=== PATIENT | male | born 1960 | race Two or more races ===

== ENCOUNTER 2018-11-18 05:24 | Inpatient (IN) | payer OTHER ==
[~2018-11-18] VITALS: Ht 177.8 cm; Wt 107.0 kg
[~2018-11-18 05:24] MED LIST: AMLO-150 PO; ASPI-496 PO; CHOL500015 PO; EMPA10TA PO; FENO160T PO; GABA100C PO; KRIL1CAP5 PO; LATA2.5D3 EACHEYE; LISI-170 PO; MELO15TA24 PO; MULT-642 PO; PITA4TAB2 PO; SITA1TAB5 PO; TAMS-11 PO; TIZA4TAB PO
[2018-11-18] MEDS ORDERED: LACTATED RINGERS 1,000 ML IV SCH (06:20)
[2018-11-18 06:23] VITALS: BP 132/82
[2018-11-18] MEDS ORDERED: THROMBIN 5,000 UNIT VIAL TP ONE (06:44)
[2018-11-18] MEDS ORDERED: BUPIVACAINE/PF 0.25% ONE (06:47)
[2018-11-18] MEDS ORDERED: VANCOMYCIN 1,000 MG ONE (06:47)
[2018-11-18] MEDS ORDERED: VANCOMYCIN 500 MG ONE (06:47)
[2018-11-18] MEDS ORDERED: LIDOCAINE/PF 0.5% ,50ML ONE (06:47)
[2018-11-18] MEDS ORDERED: EPINEPHRINE 1 MG/ML, 1ML ONE (06:48)
[2018-11-18] MEDS ORDERED: PROPOFOL 50 ML ONE ×3 (06:49→09:31)
[2018-11-18] MEDS ORDERED: MIDAZOLAM 1 MG/ML, 2ML ONE (06:49)
[2018-11-18] MEDS ORDERED: FENTANYL PF 250 MCG/5ML ONE (06:49)
[2018-11-18] MEDS ORDERED: KETAMINE 50 MG/ML, 10ML ONE (07:22)
[2018-11-18] MEDS ORDERED: METOCLOPRAMIDE 5 MG/ML, 2ML IV PRN (07:30)
[2018-11-18] MEDS ORDERED: FENTANYL PF 100 MCG/2ML IV PRN (07:30)
[2018-11-18] MEDS ORDERED: MEPERIDINE/PF 25MG/0.5ML IVPush PRN (07:30)
[2018-11-18] MEDS ORDERED: METOPROLOL 1 MG/ML, 5ML IV PRN (07:30)
[2018-11-18] MEDS ORDERED: hydrALAzine 20 MG/ML, 1ML IV PRN (07:30)
[2018-11-18] MEDS ORDERED: OXYcodone 5 MG/5 ML ORAL.SOL UDC PO PRN (07:30)
[2018-11-18] MEDS ORDERED: GABAPENTIN 300 MG CAPSULE PO ONE (07:30)
[2018-11-18] MEDS ORDERED: LABETALOL 5MG/ML, 20ML IV PRN (07:30)
[2018-11-18] MEDS ORDERED: ACETAMINOPHEN 500 MG TABLET PO ONE (07:30)
[2018-11-18] MEDS ORDERED: ALBUTEROL SULFATE 2.5 MG/3 ML NPPB PRN (07:30)
[2018-11-18] MEDS ORDERED: LORazepam 2 MG/ML, 1ML IVPush PRN (07:30)
[2018-11-18] MEDS ORDERED: OXYcodone 5 MG/5 ML ORAL.SOL UDC ONE (10:24)
[2018-11-18] MEDS ORDERED: HYDROmorphone 2 MG/ML, 1ML ONE (10:24)
[2018-11-18] MEDS: HYDROmorphone 2 MG/ML, 1ML IVPush PRN ×3 (10:27→10:41)
[2018-11-18] MEDS ORDERED: METHOCARBAMOL 1,000 MG in DEXTROSE 5% 100 ML IV ONE (10:30)
[2018-11-18] MEDS ORDERED: SUCCINYLCHOLINE 20 MG/ML, 10ML ONE (10:58)
[2018-11-18] MEDS ORDERED: CEFAZOLIN 1,000 MG ONE (10:58)
[2018-11-18] MEDS ORDERED: DEXAMETHASONE 4 MG/ML, 1ML ONE (10:58)
[2018-11-18] MEDS ORDERED: PROPOFOL 10 MG/ML, 20ML ONE (10:58)
[2018-11-18] MEDS ORDERED: ONDANSETRON 2MG/ML, 2ML ONE (10:58)
[2018-11-18] MEDS ORDERED: BISACODYL 10 MG SUPP PR PRN (12:00)
[2018-11-18] MEDS ORDERED: HYDROcodone/APAP 5/325 TABLET PO PRN (12:00)
[2018-11-18] MEDS ORDERED: ONDANSETRON 2MG/ML, 2ML IV PRN (12:00)
[2018-11-18] MEDS ORDERED: PROMETHAZINE 25 MG/ML, 1ML IM PRN (12:00)
[2018-11-18] MEDS ORDERED: MAGNESIUM HYDROXIDE 8%, 30ML UDC PO PRN (12:00)
[2018-11-18] MEDS: NS + 20MEQ KCL 1,000 ML IV SCH ×2 (12:10→23:00)
[2018-11-18] MEDS ORDERED: TIZANIDINE 4MG TABLET PO PRN (12:30)
[2018-11-18] MEDS ORDERED: GABAPENTIN 100 MG CAPSULE PO PRN (12:30)
[2018-11-18] MEDS ORDERED: DEXTROSE 4 GM TAB.CHEW PO PRN (13:00)
[2018-11-18] MEDS ORDERED: LISINOPRIL 20 MG TABLET PO SCH (13:00)
[2018-11-18] MEDS ORDERED: FENOFIBRATE 145 MG TABLET PO SCH (13:00)
[2018-11-18] MEDS ORDERED: DEXTROSE 50%, 50ML SYRINGE IVPush PRN (13:00)
[2018-11-18] MEDS ORDERED: GLUCAGON 1 MG IM PRN (13:00)
[2018-11-18] MEDS ORDERED: PHARMACY INSTRUCTION MC PRN (13:00)
[2018-11-18 13:05] VITALS: BP 123/85
[2018-11-18] MEDS: morphine SULFATE 10 MG/ML, 1ML IV PRN ×2 (13:16→13:42)
[2018-11-18] MEDS: CEFAZOLIN PMX 1GM/50ML 50 ML IVPB SCH (16:09)
[2018-11-18] MEDS: HYDROcodone/APAP 10/325 MG TABLET PO PRN ×3 (16:56→22:36)
[2018-11-18] MEDS: INSULIN LISPRO 100 UNITS/ML, PEN SQ-INSULIN SCH ×2 (17:20→21:56)
[2018-11-18 19:16] VITALS: BP 132/73
[2018-11-18] MEDS: METHOCARBAMOL 750 MG TABLET PO PRN (19:36)
[2018-11-18] MEDS ORDERED: LATANOPROST OPHTH 0.005%, 2.5ML EACHEYE SCH (21:00)
[2018-11-18] MEDS: SENNA/DOCUSATE TABLET PO SCH (22:34)
[2018-11-18] MEDS: SODIUM CHLORIDE FLUSH 10ML SYR IVF SCH (22:38)
[2018-11-18] MEDS: LATANOPROST OPHTH 0.005%, 2.5ML EACHEYE SCH (23:00)
[2018-11-19 00:18] VITALS: BP 118/66
[2018-11-19] MEDS: CEFAZOLIN PMX 1GM/50ML 50 ML IVPB SCH (00:37)
[2018-11-19 03:02] VITALS: BP 126/65
[2018-11-19 05:08] LABS: BASOPHILS # (AUTO) 0.04 x10^3/uL (0-0.1); BASOPHILS % (AUTO) 0 % (0-1); EOSINOPHILS # (AUTO) 0.03 x10^3/uL (0-0.4); EOSINOPHILS % (AUTO) 0 % (1-7); LYMPHOCYTES # (AUTO) 0.89 x10^3/uL (1-3.4); LYMPHOCYTES % (AUTO) 9 % (22-44); MD NO; MEAN CORPUSCULAR HEMOGLOBIN 30.1 pg (27.5-34.5); MEAN CORPUSCULAR HGB CONC 34.2 g/dL (33.2-36.2); MEAN PLATELET VOLUME 8.2 fL (7.4-10.4); MONOCYTES % (AUTO) 11 % (2-9); NEUTROPHILS # (AUTO) 7.81 x10^3/uL (1.8-6.8); NEUTROPHILS % (AUTO) 79 % (42-75); PLATELET COUNT 233 x10^3/uL (130-400); RED BLOOD COUNT 4.54 x10^6/uL (4.38-5.82); RED CELL DISTRIBUTION WIDTH 13.4 % (9.4-14.8)
[2018-11-19 05:17] LABS: CHLORIDE 107 mmol/L (98-107)
[2018-11-19 05:25] LABS: ALANINE AMINOTRANSFERASE 37 U/L (12-78); ALBUMIN 3.3 g/dL (3.4-5.0); ALKALINE PHOSPHATASE 47 U/L (45-117); ANION GAP 10 mmol/L (5-15); BILIRUBIN,TOTAL 0.6 mg/dL (0.2-1.0); CALCIUM 7.8 mg/dL (8.5-10.1); CREATININE 0.88 mg/dL (0.7-1.3); TOTAL PROTEIN 6.2 g/dL (6.4-8.2)
[2018-11-19] MEDS: HYDROcodone/APAP 10/325 MG TABLET PO PRN ×4 (06:52→20:24)
[2018-11-19] MEDS: INSULIN LISPRO 100 UNITS/ML, PEN SQ-INSULIN SCH ×4 (07:00→20:17)
[2018-11-19 07:36] VITALS: BP 119/68
[2018-11-19] MEDS: AMLODIPINE 5 MG TABLET PO SCH (08:58)
[2018-11-19] MEDS: FENOFIBRATE 145 MG TABLET PO SCH (08:58)
[2018-11-19] MEDS ORDERED: JANUMET PO SCH (09:00)
[2018-11-19] MEDS: JARDIANCE 10 MG PO SCH (09:00)
[2018-11-19] MEDS ORDERED: JARDIANCE 10 MG PO SCH (09:00)
[2018-11-19] MEDS: SENNA/DOCUSATE TABLET PO SCH ×2 (09:00→20:24)
[2018-11-19] MEDS ORDERED: TAMSULOSIN 0.4 MG CAP.ER.24H PO SCH ×2 (09:00)
[2018-11-19] MEDS ORDERED: LIVALO PO SCH (09:00)
[2018-11-19] MEDS: LISINOPRIL 20 MG TABLET PO SCH (09:00)
[2018-11-19] MEDS: JANUMET PO SCH (09:00)
[2018-11-19] MEDS: SODIUM CHLORIDE FLUSH 10ML SYR IVF SCH ×2 (09:00→20:26)
[2018-11-19] MEDS: NS + 20MEQ KCL 1,000 ML IV SCH ×2 (10:22→21:47)
[2018-11-19 12:35] VITALS: BP 110/71
[2018-11-19] MEDS ORDERED: AMLODIPINE 5 MG TABLET PO SCH (13:00)
[2018-11-19] MEDS: METHOCARBAMOL 750 MG TABLET PO PRN (20:24)
[2018-11-19] MEDS: LATANOPROST OPHTH 0.005%, 2.5ML EACHEYE SCH (20:25)
[2018-11-19] MEDS: LIVALO PO SCH (20:25)
[2018-11-19 21:17] VITALS: BP 131/80
[2018-11-20] MEDS: HYDROcodone/APAP 10/325 MG TABLET PO PRN ×3 (00:17→11:36)
[2018-11-20 00:45] VITALS: BP 137/75
[2018-11-20] MEDS: NS + 20MEQ KCL 1,000 ML IV SCH (04:33)
[2018-11-20] MEDS: METHOCARBAMOL 750 MG TABLET PO PRN (04:40)
[2018-11-20] MEDS: INSULIN LISPRO 100 UNITS/ML, PEN SQ-INSULIN SCH ×2 (06:28→11:00)
[2018-11-20 07:58] VITALS: BP 138/78
[2018-11-20] MEDS: AMLODIPINE 5 MG TABLET PO SCH (09:04)
[2018-11-20] MEDS: FENOFIBRATE 145 MG TABLET PO SCH (09:05)
[2018-11-20] MEDS: LIVALO PO SCH (09:05)
[2018-11-20] MEDS: LISINOPRIL 20 MG TABLET PO SCH (09:05)
[2018-11-20] MEDS: SODIUM CHLORIDE FLUSH 10ML SYR IVF SCH (09:05)
[2018-11-20] MEDS: JANUMET PO SCH (09:05)
[2018-11-20] MEDS: JARDIANCE 10 MG PO SCH (09:05)
[2018-11-20] MEDS: SENNA/DOCUSATE TABLET PO SCH (09:06)
[2018-11-20 11:55] VITALS: BP 130/86
== END 2018-11-20 12:30 | disposition home or self-care (01) | DRG 460 ==
LOC: ORIP 05:24 → 4NOR 11:21 → DCLOUNGE 11-20 12:30
PROVIDERS: ADMIT Orthopaedic Surgery Orthopaedic Surgery of the Spine; ATTEND Orthopaedic Surgery Orthopaedic Surgery of the Spine
PROC: 0SB20ZZ Excision of Lumbar Vertebral Disc, Open Approach (ICD-10-PCS; 2018-11-18)
PROC: 4A11X4G Monitoring of Peripheral Nervous Electrical Activity, Intraoperative, External Approach (ICD-10-PCS; 2018-11-18)
PROC: 0SG00A0 Fusion of Lumbar Vertebral Joint with Interbody Fusion Device, Anterior Approach, Anterior Column, Open Approach (ICD-10-PCS; principal; 2018-11-18 07:30)
DX: M48.061 Spinal stenosis, lumbar region without neurogenic claudication (principal); M43.16 Spondylolisthesis, lumbar region; E11.65 Type 2 diabetes mellitus with hyperglycemia; M54.16 Radiculopathy, lumbar region; E78.5 Hyperlipidemia, unspecified; H40.9 Unspecified glaucoma; E11.42 Type 2 diabetes mellitus with diabetic polyneuropathy; G89.29 Other chronic pain; I10 Essential (primary) hypertension; N40.0 Benign prostatic hyperplasia without lower urinary tract symptoms; Z88.0 Allergy status to penicillin
CPT/HCPCS: 36415; 72100; 80053; 82962; 85025; C1713; G0378; J0171; J0690; J1100; J1170; J2001; J2250; J2405; J2704; J3010; J3370; J3480; J3490; C1762; J0330; J1815; J2270; J2800; J7120

== ENCOUNTER 2018-11-27 05:26 | Inpatient (IN) | payer OTHER ==
[~2018-11-27] VITALS: Ht 177.8 cm; Wt 96.0 kg
[2018-11-27] MEDS ORDERED: LACTATED RINGERS 1,000 ML IV SCH (06:11)
[2018-11-27] MEDS ORDERED: LIDOCAINE/PF 0.5% ,50ML ONE (06:31)
[2018-11-27] MEDS ORDERED: THROMBIN 5,000 UNIT VIAL TP ONE (06:31)
[2018-11-27] MEDS ORDERED: VANCOMYCIN 1,000 MG ONE ×2 (06:31→08:55)
[2018-11-27] MEDS ORDERED: BUPIVACAINE/PF 0.25% ONE (06:31)
[2018-11-27] MEDS ORDERED: EPINEPHRINE 1 MG/ML, 1ML ONE (06:32)
[2018-11-27] MEDS ORDERED: HYDR-3245 PO (06:42)
[2018-11-27] MEDS ORDERED: FENTANYL PF 100 MCG/2ML ONE ×2 (07:34→09:20)
[2018-11-27] MEDS ORDERED: MIDAZOLAM 1 MG/ML, 2ML ONE (07:34)
[2018-11-27] MEDS ORDERED: PROPOFOL 10 MG/ML, 50ML ONE (07:35)
[2018-11-27] MEDS ORDERED: DEXAMETHASONE 4 MG/ML, 1ML ONE (07:35)
[2018-11-27] MEDS ORDERED: PROPOFOL 10 MG/ML, 20ML ONE (07:35)
[2018-11-27] MEDS ORDERED: ROCURONIUM 10 MG/ML,10ML ONE (07:35)
[2018-11-27] MEDS ORDERED: CEFAZOLIN 1,000 MG ONE (07:35)
[2018-11-27] MEDS ORDERED: ONDANSETRON 2MG/ML, 2ML ONE (07:35)
[2018-11-27] MEDS ORDERED: METOCLOPRAMIDE 5 MG/ML, 2ML ONE (07:35)
[2018-11-27] MEDS ORDERED: TOBRAMYCIN SULFATE 1.2 GM IMP ONE (08:53)
[2018-11-27] MEDS: HYDROmorphone 2 MG/ML, 1ML IVPush PRN ×4 (11:00→11:45)
[2018-11-27] MEDS ORDERED: OXYcodone 5 MG/5 ML ORAL.SOL UDC ONE (11:04)
[2018-11-27] MEDS ORDERED: HYDROmorphone 1 MG/ML, 1ML ONE ×2 (11:04→11:20)
[2018-11-27] MEDS ORDERED: METHOCARBAMOL 1,000 MG in DEXTROSE 5% 100 ML IV ONE (12:00)
[2018-11-27] MEDS: MORPHINE 30MG/30ML PCA.SYR IV PRN ×2 (12:00→22:12)
[2018-11-27 12:47] VITALS: BP 136/80
[2018-11-27] MEDS ORDERED: HYDROcodone/APAP 5/325 TABLET PO PRN (13:30)
[2018-11-27] MEDS ORDERED: morphine SULFATE 10 MG/ML, 1ML IV PRN (13:30)
[2018-11-27] MEDS ORDERED: DIPHENHYDRAMINE 50 MG/ML, 1ML IVPush PRN (13:30)
[2018-11-27] MEDS ORDERED: DIPHENHYDRAMINE 50 MG CAPSULE PO PRN (13:30)
[2018-11-27] MEDS ORDERED: MAGNESIUM HYDROXIDE 8%, 30ML UDC PO PRN (13:30)
[2018-11-27] MEDS ORDERED: PROMETHAZINE 25 MG/ML, 1ML IM PRN (13:30)
[2018-11-27] MEDS ORDERED: DIPHENHYDRAMINE 50 MG/ML, 1ML IM PRN (13:30)
[2018-11-27] MEDS ORDERED: BISACODYL 10 MG SUPP PR PRN (13:30)
[2018-11-27] MEDS: D5%-0.9% NACL+KCL 20MEQ 1,000 ML IV SCH (15:02)
[2018-11-27] MEDS ORDERED: OXYcodone 5 MG/5 ML ORAL.SOL UDC PO PRN (16:30)
[2018-11-27] MEDS: CEFAZOLIN PMX 1GM/50ML 50 ML IVPB SCH (17:18)
[2018-11-27 19:50] VITALS: BP 118/72
[2018-11-27] MEDS: LATANOPROST OPHTH 0.005%, 2.5ML OP SCH (20:14)
[2018-11-27] MEDS: METHOCARBAMOL 750 MG in DEXTROSE 5% 100 ML IV SCH (20:14)
[2018-11-27] MEDS: SENNA/DOCUSATE TABLET PO SCH (20:14)
[2018-11-27] MEDS ORDERED: ATORVASTATIN 20 MG TABLET PO SCH (21:00)
[2018-11-28] MEDS: CEFAZOLIN PMX 1GM/50ML 50 ML IVPB SCH (00:03)
[2018-11-28 00:07] VITALS: BP 126/81
[2018-11-28] MEDS: D5%-0.9% NACL+KCL 20MEQ 1,000 ML IV SCH ×3 (02:53→23:59)
[2018-11-28] MEDS: METHOCARBAMOL 750 MG in DEXTROSE 5% 100 ML IV SCH ×3 (03:35→19:46)
[2018-11-28 04:19] VITALS: BP 131/82
[2018-11-28 05:05] LABS: BASOPHILS # (AUTO) 0.02 x10^3/uL (0-0.1); BASOPHILS % (AUTO) 0 % (0-1); EOSINOPHILS # (AUTO) 0.21 x10^3/uL (0-0.4); EOSINOPHILS % (AUTO) 2 % (1-7); LYMPHOCYTES # (AUTO) 0.62 x10^3/uL (1-3.4); LYMPHOCYTES % (AUTO) 7 % (22-44); MD NO; MEAN CORPUSCULAR HEMOGLOBIN 29.7 pg (27.5-34.5); MEAN CORPUSCULAR HGB CONC 33.7 g/dL (33.2-36.2); MEAN CORPUSCULAR VOLUME 88.2 fL (81-97); MEAN PLATELET VOLUME 7.7 fL (7.4-10.4); MONOCYTES # (AUTO) 1.05 x10^3/uL (0.2-0.8); MONOCYTES % (AUTO) 12 % (2-9); NEUTROPHILS # (AUTO) 6.89 x10^3/uL (1.8-6.8); NEUTROPHILS % (AUTO) 78 % (42-75); PLATELET COUNT 278 x10^3/uL (130-400); RED BLOOD COUNT 4.52 x10^6/uL (4.38-5.82); RED CELL DISTRIBUTION WIDTH 12.6 % (9.4-14.8)
[2018-11-28 05:17] LABS: ANION GAP 6 mmol/L (5-15); CALCIUM 8.1 mg/dL (8.5-10.1); CHLORIDE 103 mmol/L (98-107); CREATININE 0.93 mg/dL (0.7-1.3)
[2018-11-28] MEDS: MORPHINE 30MG/30ML PCA.SYR IV PRN ×2 (06:24→16:14)
[2018-11-28] MEDS: AMLODIPINE 5 MG TABLET PO SCH (08:26)
[2018-11-28] MEDS: FENOFIBRATE 145 MG TABLET PO SCH (08:26)
[2018-11-28] MEDS: SENNA/DOCUSATE TABLET PO SCH ×2 (08:27→20:07)
[2018-11-28] MEDS: JANUMET HOMEMEDPO SCH (08:27)
[2018-11-28] MEDS: LISINOPRIL 20 MG TABLET PO SCH (08:27)
[2018-11-28] MEDS: EMPAGLIFLOZIN 10 MG HOMEMEDPO SCH (08:27)
[2018-11-28 09:53] VITALS: BP 139/79
[2018-11-28 13:24] VITALS: BP 110/79
[2018-11-28] MEDS: HYDROcodone/APAP 10/325 MG TABLET PO PRN (15:10)
[2018-11-28] MEDS: OMEPRAZOLE 20 MG CAPSULE.DR PO SCH (17:46)
[2018-11-28 18:49] VITALS: BP 96/60
[2018-11-28] MEDS: LATANOPROST OPHTH 0.005%, 2.5ML OP SCH (20:06)
[2018-11-28] MEDS: TAMSULOSIN 0.4 MG CAP.ER.24H PO SCH (20:09)
[2018-11-29 00:47] VITALS: BP 124/77
[2018-11-29] MEDS: METHOCARBAMOL 750 MG in DEXTROSE 5% 100 ML IV SCH ×2 (04:12→12:22)
[2018-11-29] MEDS: MORPHINE 30MG/30ML PCA.SYR IV PRN ×2 (04:12→16:29)
[2018-11-29 05:08] LABS: ANION GAP 7 mmol/L (5-15); CALCIUM 8.4 mg/dL (8.5-10.1); CHLORIDE 103 mmol/L (98-107); CREATININE 0.86 mg/dL (0.7-1.3)
[2018-11-29 05:14] LABS: BASOPHILS # (AUTO) 0.02 x10^3/uL (0-0.1); BASOPHILS % (AUTO) 0 % (0-1); EOSINOPHILS # (AUTO) 0.37 x10^3/uL (0-0.4); EOSINOPHILS % (AUTO) 4 % (1-7); LYMPHOCYTES # (AUTO) 0.64 x10^3/uL (1-3.4); LYMPHOCYTES % (AUTO) 6 % (22-44); MD NO; MEAN CORPUSCULAR HEMOGLOBIN 30.4 pg (27.5-34.5); MEAN CORPUSCULAR HGB CONC 35.1 g/dL (33.2-36.2); MEAN CORPUSCULAR VOLUME 86.7 fL (81-97); MEAN PLATELET VOLUME 7.7 fL (7.4-10.4); MONOCYTES # (AUTO) 1.23 x10^3/uL (0.2-0.8); MONOCYTES % (AUTO) 12 % (2-9); NEUTROPHILS % (AUTO) 79 % (42-75); PLATELET COUNT 257 x10^3/uL (130-400)
[2018-11-29 07:40] VITALS: BP 118/72
[2018-11-29] MEDS: FENOFIBRATE 145 MG TABLET PO SCH (08:50)
[2018-11-29] MEDS: AMLODIPINE 5 MG TABLET PO SCH (08:51)
[2018-11-29] MEDS: EMPAGLIFLOZIN 10 MG HOMEMEDPO SCH (08:51)
[2018-11-29] MEDS: LISINOPRIL 20 MG TABLET PO SCH (08:51)
[2018-11-29] MEDS: SENNA/DOCUSATE TABLET PO SCH ×2 (08:51→19:42)
[2018-11-29] MEDS: OMEPRAZOLE 20 MG CAPSULE.DR PO SCH (08:51)
[2018-11-29] MEDS: JANUMET HOMEMEDPO SCH (08:51)
[2018-11-29] MEDS: D5%-0.9% NACL+KCL 20MEQ 1,000 ML IV SCH ×3 (08:57→20:47)
[2018-11-29 14:54] VITALS: BP 112/63
[2018-11-29] MEDS: ONDANSETRON 2MG/ML, 2ML IV PRN (17:48)
[2018-11-29] MEDS ORDERED: METH750T87 PO (18:04)
[2018-11-29] MEDS ORDERED: HYDR-3307 PO (18:05)
[2018-11-29 19:09] VITALS: BP 121/73
[2018-11-29] MEDS: LATANOPROST OPHTH 0.005%, 2.5ML OP SCH (19:41)
[2018-11-29] MEDS: HYDROcodone/APAP 10/325 MG TABLET PO PRN ×2 (19:42→23:50)
[2018-11-29] MEDS: METHOCARBAMOL 750 MG TABLET PO SCH (19:42)
[2018-11-29] MEDS: TAMSULOSIN 0.4 MG CAP.ER.24H PO SCH (20:46)
[2018-11-30 00:49] VITALS: BP 113/79
[2018-11-30] MEDS: METHOCARBAMOL 750 MG TABLET PO SCH ×3 (03:40→20:18)
[2018-11-30 06:39] VITALS: BP 123/78
[2018-11-30] MEDS: HYDROcodone/APAP 10/325 MG TABLET PO PRN ×4 (08:30→23:13)
[2018-11-30] MEDS: ONDANSETRON 2MG/ML, 2ML IV PRN ×2 (08:44→23:13)
[2018-11-30] MEDS: TAMSULOSIN 0.4 MG CAP.ER.24H PO SCH (09:00)
[2018-11-30] MEDS: AMLODIPINE 5 MG TABLET PO SCH (10:41)
[2018-11-30] MEDS: SENNA/DOCUSATE TABLET PO SCH ×2 (10:41→20:18)
[2018-11-30] MEDS: OMEPRAZOLE 20 MG CAPSULE.DR PO SCH (10:42)
[2018-11-30] MEDS: LISINOPRIL 20 MG TABLET PO SCH (10:42)
[2018-11-30] MEDS: FENOFIBRATE 145 MG TABLET PO SCH (10:42)
[2018-11-30] MEDS: EMPAGLIFLOZIN 10 MG HOMEMEDPO SCH (10:43)
[2018-11-30] MEDS: JANUMET HOMEMEDPO SCH (10:43)
[2018-11-30] MEDS: D5%-0.9% NACL+KCL 20MEQ 1,000 ML IV SCH (13:34)
[2018-11-30 14:02] VITALS: BP 114/66
[2018-11-30 19:55] VITALS: BP 121/70
[2018-11-30] MEDS: LATANOPROST OPHTH 0.005%, 2.5ML OP SCH (20:19)
[2018-11-30] MEDS ORDERED: TAMSULOSIN 0.4 MG CAP.ER.24H PO SCH (21:00)
[2018-12-01 01:40] VITALS: BP 109/56
[2018-12-01 03:47] VITALS: BP 127/79
[2018-12-01] MEDS: METHOCARBAMOL 750 MG TABLET PO SCH ×2 (03:48→12:29)
[2018-12-01] MEDS: HYDROcodone/APAP 10/325 MG TABLET PO PRN ×3 (04:15→12:29)
[2018-12-01 06:25] VITALS: BP 119/67
[2018-12-01] MEDS: OMEPRAZOLE 20 MG CAPSULE.DR PO SCH (06:37)
[2018-12-01] MEDS: EMPAGLIFLOZIN 10 MG HOMEMEDPO SCH (08:09)
[2018-12-01] MEDS: JANUMET HOMEMEDPO SCH (08:09)
[2018-12-01] MEDS: FENOFIBRATE 145 MG TABLET PO SCH (09:32)
[2018-12-01] MEDS: AMLODIPINE 5 MG TABLET PO SCH (09:32)
[2018-12-01] MEDS: SENNA/DOCUSATE TABLET PO SCH (09:32)
[2018-12-01] MEDS: LISINOPRIL 20 MG TABLET PO SCH (09:33)
[2018-12-01] MEDS: D5%-0.9% NACL+KCL 20MEQ 1,000 ML IV SCH ×2 (10:00)
== END 2018-12-01 14:00 | disposition home or self-care (01) | DRG 460 ==
LOC: ORIP 05:26 → EDSTATUS 11:00 → 4NOR 12:40
PROVIDERS: ADMIT Orthopaedic Surgery Orthopaedic Surgery of the Spine; ATTEND Orthopaedic Surgery Orthopaedic Surgery of the Spine
PROC: 0SG0071 Fusion of Lumbar Vertebral Joint with Autologous Tissue Substitute, Posterior Approach, Posterior Column, Open Approach (ICD-10-PCS; principal; 2018-11-27 07:30)
DX: M43.16 Spondylolisthesis, lumbar region (principal); M51.36 Other intervertebral disc degeneration, lumbar region; M48.061 Spinal stenosis, lumbar region without neurogenic claudication; Z88.0 Allergy status to penicillin; I10 Essential (primary) hypertension; E78.00 Pure hypercholesterolemia, unspecified; E11.9 Type 2 diabetes mellitus without complications
CPT/HCPCS: 36415; 72100; J3260; 80048; 82962; 85025; C1713; G0378; J0171; J0690; J1100; J1170; J2001; J2250; J2270; J2405; J2704; J3010; J3370; J3490; J2765; J2800; J3480; J7120